=== PATIENT | female | born 1960 | race African-American/Black ===

== ENCOUNTER 2017-05-05 20:29 | Inpatient (IN) | payer SELFPAY ==
[~2017-05-05] VITALS: Ht 167.6 cm; Wt 75.4 kg
--- NOTE | 2017-05-05 20:56 | RAD ---
CT Head W/O Contrast: History: lt sided facial droop, weakness, no priors Comparison: none Axial images were obtained without contrast. The cabrales and white matter appears normal and symmetrical for the patients age. There is no mass effect, extraaxial fluid collections or hydrocephalus. There is no gross bleed. There is no focal loss of cabrales-white matter distinction to suggest acute ischemia, i.e. stroke. Impression: No acute findings. These results were called to Dr. MOREIRA and verified by read back at the time of dictation. Dr. ARTIS Compliance Statement: One or more of the following individualized dose reduction techniques were utilized for this examination: 1. Automated exposure control 2. Adjustment of the mA and/or kV according to patient size 3. Use of iterative reconstruction technique Electronically signed by: Rancho Lainez III, MD (05/05/2017 8:52 PM) [facility]
[2017-05-05] MEDS ORDERED: ALTEPLASE 6.9 MG IV ONE (21:00)
[2017-05-05] MEDS ORDERED: LABETALOL 20 MG/4 ML DISP.SYRIN. IV PRN ×2 (21:00→22:30)
[2017-05-05] MEDS ORDERED: ALTEPLASE IV SCH (21:00)
[2017-05-05 21:06] LABS: HEMATOCRIT 40.8 % (36.0-47.0); HEMOGLOBIN 13.6 g/dL (12.0-15.5); RED BLOOD COUNT 4.55 x10^6/uL (3.50-5.40); RED CELL DISTRIBUTION WIDTH 13.5 % (11.5-14.5); WHITE BLOOD COUNT 6.8 x10^3/uL (4.0-11.0)
--- NOTE | 2017-05-05 21:07 | PHYS DOC ---
Past Medical History Past Medical History: No Pertinent History Past Surgical History: , Other Additional Past Surgical Histo: breast reduction Alcohol Use: None Drug Use: None Adult General Chief Complaint Chief Complaint: WEAKNESS/GENERALIZED HPI HPI Patient is a 57 year old female who presents with complaint of left-sided weakness. Patient states that her symptoms started approximately 15 minutes prior to arrival. The patient states that she has been feeling nausea throughout the day but did not experience any weakness until approximately 15 minutes prior to arrival. Patient denies any significant past medical history a right. Patient states that she has had a breast reduction and but denies any other significant past medical history. Patient states that she is having difficulty lifting her left upper and lower extremity. Patient also states that she has noticed some difficulty with speech as she has been slurring her words. Patient denies any history of similar symptoms. Review of Systems Review of Systems Constitutional: Denies fever or chills [] Eyes: Denies change in visual acuity, redness, or eye pain [] HENT: Denies nasal congestion or sore throat [] Respiratory: Denies cough or shortness of breath [] Cardiovascular: No additional information not addressed in HPI [] GI: Denies abdominal pain, nausea, vomiting, bloody stools or diarrhea [] : Denies dysuria or hematuria [] Musculoskeletal: Denies back pain or joint pain [] Integument: Denies rash or skin lesions [] Neurologic: Denies headache, focal weakness or sensory changes [] Endocrine: Denies polyuria or polydipsia [] All other systems were reviewed and found to be within normal limits, except as documented in this note. Current Medications Current Medications Current Medications Medications (Trade) Dose Ordered Sig/Radha Start Time Stop Time Status Last Admin Dose Admin Alteplase, Recombinant 62.8 ml @ 62.8 mls/hr Q1H 05/05/17 21:00 05/05/17 21:59 DC Labetalol HCl (Normodyne) 10 mg PRN Q10MIN PRN 05/05/17 21:00 Nicardipine HCl 50 mg/Sodium Chloride 270 ml @ 27 mls/hr CONT PRN PRN 05/05/17 21:00 Allergies Allergies Allergies Coded Allergies Type Severity Reaction Last Updated Verified No Known Drug Allergies 05/05/17 No Physical Exam Physical Exam Constitutional: Alert, afebrile, no acute distress. [] HENT: Normocephalic, atraumatic, bilateral external ears normal, oropharynx moist, no oral exudates, nose normal. [] Eyes: PERRLA, EOMI, conjunctiva normal, no discharge. [] Neck: Normal range of motion, no tenderness, supple, no stridor. [] Cardiovascular:Heart rate regular rhythm, no murmur [] Lungs & Thorax: Bilateral breath sounds clear to auscultation [] Abdomen: Bowel sounds normal, soft, no tenderness, no masses, no pulsatile masses. [] Skin: Warm, dry, no erythema, no rash. [] Back: No tenderness, no CVA tenderness. [] Extremities: No tenderness, no cyanosis, no clubbing, ROM intact, no edema. [] Neurologic: Alert and oriented X 3, positive drift in the left upper and lower extremity, 3 out of 5 door serviceman strength in left upper extremity, 5 out of 5 door serviceman strength in right upper extremity, left-sided facial droop that is forehead sparing. [] Current Patient Data Vital Signs Vital Signs Date Time Temp Pulse Resp B/P (MAP) Pulse Ox O2 Delivery O2 Flow Rate FiO2 05/05/17 20:33 98.1 85 16 178/96 (123) 98 Room Air 98.1 Lab Values Laboratory Tests Test 05/05/17 20:40 05/05/17 20:50 Glucose (Fingerstick) 100 mg/dL (70-99) H White Blood Count 6.8 x10^3/uL (4.0-11.0) Red Blood Count 4.55 x10^6/uL (3.50-5.40) Hemoglobin 13.6 g/dL (12.0-15.5) Hematocrit 40.8 % (36.0-47.0) Mean Corpuscular Volume 90 fL (79-100) Mean Corpuscular Hemoglobin 30 pg (25-35) Mean Corpuscular Hemoglobin Concent 33 g/dL (31-37) Red Cell Distribution Width 13.5 % (11.5-14.5) Platelet Count 219 x10^3/uL (140-400) Prothrombin Time 11.9 SEC (11.7-14.0) Prothrombin Time INR 0.9 (0.8-1.1) PTT 31 SEC (24-38) Sodium Level 138 mmol/L (136-145) Potassium Level 3.8 mmol/L (3.5-5.1) Chloride Level 104 mmol/L (98-107) Carbon Dioxide Level 25 mmol/L (21-32) Anion Gap 9 (6-14) Blood Urea Nitrogen 26 mg/dL (7-20) H Creatinine 0.7 mg/dL (0.6-1.0) Estimated GFR (Cockcroft-Gault) 85.9 Glucose Level 100 mg/dL (70-99) H Calcium Level 9.3 mg/dL (8.5-10.1) Laboratory Tests 05/05/17 20:50 Laboratory Tests 05/05/17 20:50 EKG EKG Interpreted by me: Heart rate 81, sinus rhythm, normal intervals, normal axis, no acute ST/T-wave abnormalities present[] Radiology/Procedures Radiology/Procedures One view AP chest x-ray interpreted by me: No infiltrates, no effusions, normal cardiac silhouette [facility] [address] [place] [address] IMAGING REPORT Signed PATIENT: LYN BANG ACCOUNT: [id number] : 1960 LOCATION: ER AGE: 57 SEX: F EXAM STATUS: PRE ER ORD. PHYSICIAN: ASTER MOREIRA MD REASON: left-sided facial droop and extremity weakness 15 minutes ago PROCEDURE: CT CODE STROKE HEAD WO CT Head W/O Contrast: History: lt sided facial droop, weakness, no priors Comparison: none Axial images were obtained without contrast. The cabrales and white matter appears normal and symmetrical for the patients age. There is no mass effect, extraaxial fluid collections or hydrocephalus. There is no gross bleed. There is no focal loss of cabrales-white matter distinction to suggest acute ischemia, i.e. stroke. Impression: No acute findings. These results were called to Dr. MOREIRA and verified by read back at the time of dictation. Dr. ARTIS Compliance Statement: One or more of the following individualized dose reduction techniques were utilized for this examination: 1. Automated exposure control 2. Adjustment of the mA and/or kV according to patient size 3. Use of iterative reconstruction technique Electronically signed by: Kyra Roman III, MD (05/05/2017 8:52 PM) [facility] DICTATED and SIGNED BY: KYRA ROMAN III, MD DATE: 05/05/172049 CC: ASTER MOREIRA MD ~ [facility] [address] [place] [address] IMAGING REPORT Signed PATIENT: LYN BANG ACCOUNT: [id number] : 1960 LOCATION: [address] [place] [address] AGE: 57 SEX: F EXAM STATUS: ADM IN ORD. PHYSICIAN: ASTER MOREIRA MD REASON: left-sided weakness PROCEDURE: CT ANGIOGRAPHY HEAD AND NECK CTA head and CTA neck with contrast History: Left-sided facial droop and weakness Technique: Axial images were obtained of the head and neck after the intravenous administration of 75 mL of Isovue-370 IV contrast. Multiplanar reconstruction was performed on an independent work station including MIP imaging and 3D angiographic imaging. Comparison: none CTA head with contrast. Findings: Brain: The cabrales and white matter appears symmetrical. There is no mass effect, extra-axial fluid collections or hydrocephalus. There is no gross bleed. Distal carotid arteries: normal caliber Vertebral basilar system normal Major cerebral arteries: normal Impression: no acute findings end impression CTA neck with contrast: Findings: Aortic arch and origin of great vessels: normal Common carotid arteries: Right: normal Left: normal Internal carotid arteries: Right: normal Left: normal Vertebral basilar system normal Impression: No significant stenosis. PQRS Compliance Statement - Stenosis calculations for CT, MR and conventional angiography are based upon measurement of the distal ICA diameter in accordance with the NASCET methodology. Stenosis calculations for carotid ultrasound studies are derived from validated velocity criteria which are known to correlate with the NASCET methodology. PQRS Compliance Statement: One or more of the following individualized dose reduction techniques were utilized for this examination: 1. Automated exposure control 2. Adjustment of the mA and/or kV according to patient size 3. Use of iterative reconstruction technique Electronically signed by: Kyra Roman III, MD (05/05/2017 9:59 PM) [facility] DICTATED and SIGNED BY: KYRA ROMAN III, MD DATE: 05/05/172152 CC: ASTER MOREIRA MD; MARZENA OSBORN MD; UNKNOWN PCP NAME ~ [] Course & Med Decision Making Course & Med Decision Making Pertinent Labs and Imaging studies reviewed. (See chart for details) Patient was activated as a code stroke at 2036. The patient's CT scan was read negative at 2051 by the radiologist. The patient has an NIH score of 5. After speaking with the patient regarding risks and benefits of use of TPA, the patient was in agreement with treatment. TPA infusion was started at 2103. I spoke with Dr. Higgins at 2114 and informed him of the initiation of TPA which he was in agreement. Patient's CT angiogram showed no evidence of large vessel occlusion. The patient will be admitted for further treatment in hospital. I spoke with Dr. Osborn who accepted care patient in hospital. Dragon Disclaimer Dragon Disclaimer This electronic medical record was generated, in whole or in part, using a voice recognition dictation system. Departure Departure Impression: Primary Impression: Acute CVA (cerebrovascular accident) Disposition: ADMITTED INPATIENT Admitting Physician: Marzena Osborn Condition: CRITICAL ASTER MOREIRA MD May 05, 2017 21:07
[2017-05-05 21:20] LABS: CALCIUM 9.3 mg/dL (8.5-10.1); CREATININE 0.7 mg/dL (0.6-1.0); GFR 85.9; POTASSIUM 3.8 mmol/L (3.5-5.1)
[2017-05-05] MEDS ORDERED: ASPI-630 PO (21:20)
[2017-05-05 21:24] LABS: INR 0.9 (0.8-1.1); PROTHROMBIN TIME PATIENT 11.9 SEC (11.7-14.0)
[2017-05-05] MEDS ORDERED: IOHEXOL 300 MG/ML 100ML VIAL. IV ONE (21:45)
[2017-05-05] MEDS ORDERED: CONTRAST GIVEN MC PRN (21:45)
[2017-05-05] MEDS ORDERED: IV NORMAL SALINE 50ML 50 ML IV ONE (22:00)
--- NOTE | 2017-05-05 22:02 | RAD ---
CTA head and CTA neck with contrast History: Left-sided facial droop and weakness Technique: Axial images were obtained of the head and neck after the intravenous administration of 75 mL of Isovue-370 IV contrast. Multiplanar reconstruction was performed on an independent work station including MIP imaging and 3D angiographic imaging. Comparison: none CTA head with contrast. Findings: Brain: The cabrales and white matter appears symmetrical. There is no mass effect, extra-axial fluid collections or hydrocephalus. There is no gross bleed. Distal carotid arteries: normal caliber Vertebral basilar system normal Major cerebral arteries: normal Impression: no acute findings end impression CTA neck with contrast: Findings: Aortic arch and origin of great vessels: normal Common carotid arteries: Right: normal Left: normal Internal carotid arteries: Right: normal Left: normal Vertebral basilar system normal Impression: No significant stenosis. PQRS Compliance Statement - Stenosis calculations for CT, MR and conventional angiography are based upon measurement of the distal ICA diameter in accordance with the NASCET methodology. Stenosis calculations for carotid ultrasound studies are derived from validated velocity criteria which are known to correlate with the NASCET methodology. PQRS Compliance Statement: One or more of the following individualized dose reduction techniques were utilized for this examination: 1. Automated exposure control 2. Adjustment of the mA and/or kV according to patient size 3. Use of iterative reconstruction technique Electronically signed by: Rancho Lainez III, MD (05/05/2017 9:59 PM) [facility]
[2017-05-05] MEDS ORDERED: ONDANSETRON PF 4 MG/2 ML VIAL. IV PRN (22:30)
[2017-05-05] MEDS ORDERED: ACETAMINOPHEN 325 MG SUPP.RECT. PR PRN (22:30)
[2017-05-05 23:15] VITALS: BP 153/85
[2017-05-05 23:30] VITALS: BP 142/85
[2017-05-05 23:45] VITALS: BP 156/91
[2017-05-06] VITALS (29 sets, daily range): BP systolic 105–144; BP diastolic 54–93
[2017-05-06] MEDS: IV NORMAL SALINE 1000ML BAG 1,000 ML IV SCH ×2 (00:50→09:58)
[2017-05-06] MEDS: ATORVASTATIN CALCIUM 20 MG TABLET PO SCH ×2 (00:59→21:16)
[2017-05-06 05:49] LABS: CHOLESTEROL/HDL RATIO 2.2
--- NOTE | 2017-05-06 06:15 | EKG ---
[facility] [address] [place] [address] Test Date: 2017-05-05 Test Time: 20:38:08 Pat Name: LYN BANG Department: Room: 104 1 Gender: F Digital Archivist: : 1960 Requested By: ASETR MOREIRA Order Number: [id number] Reading MD: Schuyler Pino Measurements Intervals [place] Rate: 81 P: 58 AK: 146 QRS: 34 QRSD: 86 T: 38 QT: 382 QTc: 444 Interpretive Statements SINUS RHYTHM Electronically Signed On 05-11-2017 14:42:53 GENETIC COORDINATOR by Schuyler Pino
--- NOTE | 2017-05-06 08:14 | RAD ---
Portable chest, 05/05/2017: History: Code stroke The heart size and pulmonary vascularity are normal. There is mild tortuosity of the thoracic aorta. No pulmonary infiltrates are seen. There is no evidence of pleural fluid. IMPRESSION: No acute cardiopulmonary abnormality is detected.
--- NOTE | 2017-05-06 10:40 | HP ---
ADMIT DATE: 05/06/2017 CHIEF COMPLAINT: Left-sided weakness. HISTORY OF PRESENT ILLNESS: The patient is a 57-year-old woman without any past medical history who presented to the Emergency Room with 15 minutes of left-sided weakness and facial droop. She relates she was at work, being in housekeeping at the medical building, when she suddenly started having the above symptoms. She called a coworker who helped her come to the Emergency Room. She endorses left-sided weakness with difficulty walking as well as some speech difficulties and slurring speech. She never had similar problems. Denies any other symptoms. In the Emergency Room, CT of the head was negative for any bleed and the patient was started on tPA in consultation with Neurology. PAST MEDICAL HISTORY: None. PAST SURGICAL HISTORY: Status post several breast biopsies, all benign; status post breast reduction, status post . FAMILY HISTORY: Two sisters positive for breast cancer and one sister with end-stage renal disease, hypertension prevalent as well. No strokes, no MIs. SOCIAL HISTORY: Does not smoke. No toxic habits. ALLERGIES: No known drug allergies. MEDICATIONS: MAR reconciled with home medications. REVIEW OF SYSTEMS: Positive as per HPI. Organ systems were reviewed otherwise and found negative. PHYSICAL EXAMINATION: VITAL SIGNS: From today show a blood pressure of 131/84, heart rate of 56, respiratory rate at 16. She is afebrile. GENERAL: This is a 57-year-old woman, well nourished, well developed, alert and oriented, in no acute distress. HEENT: Shows no scleral icterus. NECK: Supple. LUNGS: Clear to auscultation bilaterally. HEART: Regular rate and rhythm. ABDOMEN: Has positive bowel sounds, soft, nontender. EXTREMITIES: Show no edema. NEUROLOGIC: Reveals 5/5 muscle strength in upper and lower extremities both proximally as well as distally. No facial droop is noted. SKIN: Warm, soft and dry. LABORATORY DATA: CBC with a WBC of 6.8, hemoglobin 13.6, platelets of 219. Chemistries with a BUN and creatinine of 26 and 0.7. Electrolytes within normal limits. Glucose at 100. Lipid profile with cholesterol of 228, LDL at 113, HDL at 106. IMAGING: CTA of the head and neck shows normal caliber vessels, no acute findings. ASSESSMENT AND PLAN: The patient is a 57-year-old woman with mild hypertension who presented with symptoms of cerebrovascular accident. She has been given tPA with resolution of all her symptoms. She will be started on JOCELYNE inhibitor for blood pressure control. Goal of less than 130/80 was discussed with her. In addition, she requires a statin as well as aspirin. These will be instituted. We will continue to monitor. Neurology has been consulted, plan for MRI. Should this be negative, the patient can be discharged 24 hours after start of her tPA, which actually was 9:00 at night. BERTA TARIQ MD DR: UR/nts JOB#: [id number] / [id number] JAQUELIN
[2017-05-06] MEDS: LISINOPRIL 10 MG TABLET PO SCH (10:41)
--- NOTE | 2017-05-06 11:12 | PDOC2 ---
NEUROLOGY CONSULT Date of Admission Date of Admission DATE: 05/06/17 TIME: 11:05 Reason for Consult Reason for Consult: Stroke symptoms Referring Physician Referring Physician: Dr. Meza PCP: [facility] Source Source: Chart review, Patient History of Present Illness History of Present Illness The patient is a 57-year-old right-handed female without past history, who was at work last night here at [place]. She developed left sided numbness and weakness in [facility] emergency department within 15 minutes of symptom onset. She had a negative head CT and was given out the place and her symptoms have resolved. She has no prior history of stroke, seizure, head injury, or neurological symptoms. She gets a yearly physical but does not need any medications. Past Surgical History Past Surgical History: No pertinent history Family History Family History: CVA Social History Social History , works here at [place], quit smoking 30 years ago, where alcohol Current Medications Current Medications Current Medications Alteplase, Recombinant 6.9 ml @ 414 mls/hr 1X ONCE IV Last administered on 21:04; Start 05/05/17 at 21:00; Stop 05/05/17 at 21:01; Status DC Alteplase, Recombinant 62.8 ml @ 62.8 mls/hr Q1H IV Last administered on 05/05 21:06; Start 05/05/17 at 21:00; Stop 05/05/17 at 21:59; Status DC Sodium Chloride 50 ml @ 0 mls/hr 1X ONCE IV Last administered on 05/05/17 22 :10; Start 05/05/17 at 22:00; Stop 05/05/17 at 22:01; Status DC Labetalol HCl (Normodyne) 10 mg PRN Q10MIN PRN IV HYPERTENSION, SEE COMMENTS; Start 05/05/17 at 21:00; Stop 05/05/17 at 22:31; Status DC Nicardipine HCl 50 mg/Sodium Chloride 270 ml @ 27 mls/hr CONT PRN PRN IV HYPERTENSION, SEE COMMENTS; Start 05/05/17 at 21:00; Stop 05/06/17 at 00:00; Status DC Iohexol (Omnipaque 300 Mg/ml) 75 ml 1X ONCE IV Last administered on 21:39; Start 05/05/17 at 21:45; Stop 05/05/17 at 21:46; Status DC Info (Do NOT chart on this entry -- for MONITORING) 1 each PRN DAILY PRN MC SEE COMMENTS; Start 05/05/17 at 21:45; Stop 05/07/17 at 21:44 Sodium Chloride 1,000 ml @ 100 mls/hr Q10H IV Last administered on 05/06/17 09:58; Start 05/05/17 at 22:20; Stop 05/06/17 at 10:20; Status DC Atorvastatin Calcium (Lipitor) 20 mg QHS PO Last administered on 05/06/17 00: 59; Start 05/06/17 at 01:00 Labetalol HCl (Normodyne) 10 mg PRN Q10MIN PRN IV HYPERTENSION, SEE COMMENTS; Start 05/05/17 at 22:30 Nicardipine HCl 50 mg/Sodium Chloride 270 ml @ 27 mls/hr CONT PRN PRN IV HYPERTENSION, SEE COMMENTS; Start 05/05/17 at 22:30; Stop 05/06/17 at 10:20; Status DC Acetaminophen (Tylenol) 650 mg PRN Q6HRS PRN PO MILD PAIN / TEMP; Start at 22:30 Acetaminophen (Tylenol) 325 mg PRN Q6HRS PRN TX MILD PAIN / TEMP; Start at 22:30 Ondansetron HCl (Zofran) 4 mg PRN Q6HRS PRN IV NAUSEA/VOMITING; Start at 22:30 Lisinopril (Prinivil) 10 mg DAILY PO Last administered on 05/06/17 10:41; Start 05/06/17 at 10:30 Active Scripts Active Reported Aspirin 81 Mg Tab.chew 324 Mg PO Allergies Allergies: Coded Allergies: No Known Drug Allergies (Unverified , 05/05/17) ROS Review of System Negative for fevers, chills, weight loss, shortness of breath, chest pain, indigestion, hematochezia, melena, dysuria. Full 14-point review systems is negative. Physical Exam Physical Examination PHYSICAL EXAMINATION: Vital signs: see above. General appearance is normal and in no acute distress. HEENT: Normocephalic and nontraumatic. Eyes, nose, ears, and throat are unremarkable. Neck is supple. No lymphadenopathy. No bruits are heard over the carotid artery. No crepitus. NEUROLOGICAL EXAMINATION: Mental Status Examination: Alert. Oriented to time, place, and person. Answers questions and follows commends. Pupils are equal round and reactive to light and accommodation. Extraocular movements are intact. Visual field exam shows no defect on the direct confrontation. No motor or sensory deficits on the facial exam. Uvula in the midline and the soft palate elevated symmetrically. No deviation of the tongue to any direction. Gross hearing is normal. Shoulder shrug normal. Muscle tone is normal. Muscle strength is 5. Deep tendon reflexes are 2+ all around. Plantar reflex is with flexion response bilaterally. Nlofmj-jt-byof test performance is accurate. Tandem walk test is accurate. Alternative movements are accurate. Romberg test is negative. Gait is normal. Sensory exam shows no deficits. No cerebellar signs are elicited. Vitals VITALS Vital Signs Date Time Temp Pulse Resp B/P (MAP) Pulse Ox O2 Delivery O2 Flow Rate FiO2 05/06/17 10:41 76 114/81 05/06/17 10:00 97.6 18 100 Room Air 97.6 Labs Labs Laboratory Tests Test 05/05/17 20:40 05/05/17 20:50 05/06/17 04:55 Glucose (Fingerstick) 100 mg/dL (70-99) White Blood Count 6.8 x10^3/uL (4.0-11.0) Red Blood Count 4.55 x10^6/uL (3.50-5.40) Hemoglobin 13.6 g/dL (12.0-15.5) Hematocrit 40.8 % (36.0-47.0) Mean Corpuscular Volume 90 fL (79-100) Mean Corpuscular Hemoglobin 30 pg (25-35) Mean Corpuscular Hemoglobin Concent 33 g/dL (31-37) Red Cell Distribution Width 13.5 % (11.5-14.5) Platelet Count 219 x10^3/uL (140-400) Prothrombin Time 11.9 SEC (11.7-14.0) Prothromb Time International Ratio 0.9 (0.8-1.1) Activated Partial Thromboplast Time 31 SEC (24-38) Sodium Level 138 mmol/L (136-145) Potassium Level 3.8 mmol/L (3.5-5.1) Chloride Level 104 mmol/L (98-107) Carbon Dioxide Level 25 mmol/L (21-32) Anion Gap 9 (6-14) Blood Urea Nitrogen 26 mg/dL (7-20) Creatinine 0.7 mg/dL (0.6-1.0) Estimated GFR (Cockcroft-Gault) 85.9 Glucose Level 100 mg/dL (70-99) Calcium Level 9.3 mg/dL (8.5-10.1) Triglycerides Level 45 mg/dL (0-150) Cholesterol Level 228 mg/dL (0-200) LDL Cholesterol, Calculated 113 mg/dL (0-100) VLDL Cholesterol, Calculated 9 mg/dL (0-40) Non-HDL Cholesterol Calculated 122 mg/dL (0-129) HDL Cholesterol 106 mg/dL (40-60) Cholesterol/HDL Ratio 2.2 Laboratory Tests Test 05/05/17 20:40 05/05/17 20:50 05/06/17 04:55 Glucose (Fingerstick) 100 mg/dL (70-99) White Blood Count 6.8 x10^3/uL (4.0-11.0) Red Blood Count 4.55 x10^6/uL (3.50-5.40) Hemoglobin 13.6 g/dL (12.0-15.5) Hematocrit 40.8 % (36.0-47.0) Mean Corpuscular Volume 90 fL (79-100) Mean Corpuscular Hemoglobin 30 pg (25-35) Mean Corpuscular Hemoglobin Concent 33 g/dL (31-37) Red Cell Distribution Width 13.5 % (11.5-14.5) Platelet Count 219 x10^3/uL (140-400) Prothrombin Time 11.9 SEC (11.7-14.0) Prothromb Time International Ratio 0.9 (0.8-1.1) Activated Partial Thromboplast Time 31 SEC (24-38) Sodium Level 138 mmol/L (136-145) Potassium Level 3.8 mmol/L (3.5-5.1) Chloride Level 104 mmol/L (98-107) Carbon Dioxide Level 25 mmol/L (21-32) Anion Gap 9 (6-14) Blood Urea Nitrogen 26 mg/dL (7-20) Creatinine 0.7 mg/dL (0.6-1.0) Estimated GFR (Cockcroft-Gault) 85.9 Glucose Level 100 mg/dL (70-99) Calcium Level 9.3 mg/dL (8.5-10.1) Triglycerides Level 45 mg/dL (0-150) Cholesterol Level 228 mg/dL (0-200) LDL Cholesterol, Calculated 113 mg/dL (0-100) VLDL Cholesterol, Calculated 9 mg/dL (0-40) Non-HDL Cholesterol Calculated 122 mg/dL (0-129) HDL Cholesterol 106 mg/dL (40-60) Cholesterol/HDL Ratio 2.[address] Head W/O Contrast: History: lt sided facial droop, weakness, no priors Comparison: none Axial images were obtained without contrast. The cabrales and white matter appears normal and symmetrical for the patients age. There is no mass effect, extraaxial fluid collections or hydrocephalus. There is no gross bleed. There is no focal loss of cabrales-white matter distinction to suggest acute ischemia, i.e. stroke. Impression: No acute findings. CT Head W/O Contrast: History: lt sided facial droop, weakness, no priors Comparison: none Axial images were obtained without contrast. The cabrales and white matter appears normal and symmetrical for the patients age. There is no mass effect, extraaxial fluid collections or hydrocephalus. There is no gross bleed. There is no focal loss of cabrales-white matter distinction to suggest acute ischemia, i.e. stroke. Impression: No acute findings. Assessment/Plan Assessment/Plan Impression: Right hemisphere stroke symptoms, resolved following alteplase. No evidence of intracranial hemorrhage clinically. Note hyperlipidemia Note borderline hypertension. Recommendations: ICU monitoring for 24 hours following alteplase. I scheduled a brain MRI for 5 PM today which will be close to 24 hours after the alteplase. She has already had CT Instagram Echocardiogram Start aspirin tomorrow Statin Close monitoring of blood pressure as an outpatient. Follow up with her primary physician Follow-up with neurology as needed If she is doing well late tonight, we could perhaps discharger then. Thank you for letting me help the patients care QUE MASON MD May 06, 2017 11:12
[2017-05-06] MEDS: ACETAMINOPHEN 325 MG TABLET. PO PRN (17:33)
--- NOTE | 2017-05-06 18:00 | RAD ---
EXAM: MRI BRAIN WITHOUT CONTRAST. HISTORY: Left-sided weakness and facial droop, status post TPA. TECHNIQUE: Magnetic resonance images of the brain were obtained without intravenous contrast. COMPARISON: None. FINDINGS: There is no diffusion restriction. Foci of white matter T2/FLAIR hyperintensity are nonspecific but are consistent with moderate chronic microangiopathic change. The ventricles are normal in size and position. The paranasal sinuses are clear. The orbits are unremarkable. The temporal bones are unremarkable. The calvarium demonstrates no suspicious lesions. IMPRESSION: 1. No acute infarct. 2. Moderate chronic microangiopathic white matter change. Electronically signed by: Kelly Mendiola MD (05/06/2017 5:57 PM) [facility]
[2017-05-07] MEDS: ACETAMINOPHEN 325 MG TABLET. PO PRN (00:33)
[2017-05-07 04:00] VITALS: BP 110/80
[2017-05-07 08:00] VITALS: BP 107/71
[2017-05-07 08:31] VITALS: BP 107/71
[2017-05-07] MEDS: LISINOPRIL 10 MG TABLET PO SCH (08:31)
--- NOTE | 2017-05-07 08:55 | CARD ---
APPROVED REPORT EXAM: Two-dimensional and M-mode echocardiogram with Doppler and color Doppler. Other Information Quality : Good INDICATION CVA/TIA Echo Enhancing Agent Indication: Rule Out Septal Defect Agent/Amount Used: Agitated Saline mL 2D DIMENSIONS Left Atrium(2D)3.6 (1.6-4.0cm)IVSd1.0 (0.7-1.1cm) Aortic Root(2D)2.9 (2.0-3.7cm)LVDd4.6 (3.9-5.9cm) LVOT Diameter2.0 (1.8-2.4cm)PWd1.2 (0.7-1.1cm) LVDs2.9 (2.5-4.0cm)FS (%) 36.8 % SV65.5 mlLVEF(%)66.7 (>50%) Aortic Valve AoV Peak Yuriy.156.3cm/sAoV VTI33.9cm AO Peak GR.9.8mmHgLVOT VTI 28.18cm AO Mean GR.5mmHgAVA (VTI)2.60cm2 Mitral Valve MV E Epgnuvcx69.7cm/sMV DECEL XXPD053aq MV A Bczbfbog19.6cm/sE/A Ratio1.4 TDI Lateral E' P. V9.72cm/sMedial E' P. V10.30cm/s E/Lateral E'9.5E/Medial E'9.0 Tricuspid Valve TR P. Txxwwziy290qb/sRAP OKAVUNFJ2rcAd TR Peak Gr.88wnVaTGGK68wgCl LEFT VENTRICLE The left ventricle is normal size. There is normal left ventricular wall thickness. Left ventricle sy stolic function is normal. The Ejection Fraction is 55-60%. There is normal LV segmental wall motion. Tissue Doppler imaging reveals mild left ventricular diastolic dysfunction. RIGHT VENTRICLE The right ventricle is normal size. The right ventricular systolic function is normal. ATRIA The left atrium size is normal. The right atrium size is normal. The interatrial septum is intact wit h no evidence for an atrial septal defect or patent foramen ovale as noted on 2-D doppler imaging or saline contrast. AORTIC VALVE The aortic valve is normal in structure and function. Doppler and Color Flow revealed no significant aortic regurgitation. There is no significant aortic valvular stenosis. MITRAL VALVE The mitral valve is mildly thickened. There is no evidence of mitral valve prolapse. There is no mitr al valve stenosis. Doppler and Color-flow revealed trace mitral regurgitation. TRICUSPID VALVE The tricuspid valve is normal in structure. Doppler and Color Flow revealed trace tricuspid regurgita tion. There is no tricuspid valve prolapse or vegetation. There is no tricuspid valve stenosis. PULMONIC VALVE Doppler and Color Flow revealed no pulmonic valvular regurgitation. There is no pulmonic valvular reza nosis. GREAT VESSELS The aortic root is normal in size. The ascending aorta is normal in size. The IVC is normal in size a nd collapses >50% with inspiration. PERICARDIAL EFFUSION There is no pleural effusion. There is no evidence of significant pericardial effusion. Critical Notification Critical Value: No <Conclusion> Left ventricle systolic function is normal. The Ejection Fraction is 55-60%. There is normal LV segmental wall motion. The interatrial septum is intact with no evidence for an atrial septal defect or patent foramen ovale as noted on 2-D doppler imaging or saline contrast.
[2017-05-07] MEDS ORDERED: LISI10TA2 PO (10:19)
[2017-05-07] MEDS ORDERED: ATOR20TA58 PO (10:19)
[2017-05-07] MEDS ORDERED: ASPIRIN CHEWABLE 81 MG TABLET. PO SCH (12:00)
--- NOTE | 2017-05-07 19:33 | DS ---
DATE OF DISCHARGE: 05/07/2017 CHIEF COMPLAINT: Left-sided weakness. HOSPITAL COURSE: The patient is a fairly healthy 57-year-old -[place] woman, who presented to the Emergency Room with sudden onset left-sided weakness and facial droop as well as aphasia. She was seen in the Emergency Room within 15 minutes of onset of symptoms and was deemed appropriate for TPA, which was administered without any difficulties. Her symptoms completely resolved. Neurology was consulted and she was started on blood pressure medications, aspirin as well as statin. She does have a family history of CVA and heart disease. With complete stability of her symptoms within 24 hours of TPA administration and negative MRI, the patient was deemed stable for discharge. PHYSICAL EXAMINATION: VITAL SIGNS: Blood pressure of 107/71, heart rate of 74, respiratory rate at 12. She is afebrile. GENERAL: Alert and oriented, no acute distress. LUNGS: Clear. HEART: Regular rate and rhythm. ABDOMEN: Positive bowel sounds, soft, nontender. EXTREMITIES: No edema. NEUROLOGIC: Without any deficits. DISCHARGE DIAGNOSIS: Transient ischemic attack, status post TPA. DISCHARGE DISPOSITION: To home. DISCHARGE CONDITION: Improved. DISCHARGE MEDICATIONS: Please refer to MAR. DISCHARGE INSTRUCTIONS: The patient will follow up with PCP in 2 weeks. BERTA TARIQ MD DR: JOSHUA/nts JOB#: [id number] / [id number] JAQUELIN
== END 2017-05-07 12:10 | disposition home or self-care (01) | DRG 62 ==
LOC: ER 20:29 → 1 WEST ICU 21:07
PROVIDERS: ADMIT Internal Medicine; ATTEND Internal Medicine
DX: G45.9 Transient cerebral ischemic attack, unspecified (principal); R47.01 Aphasia; E78.5 Hyperlipidemia, unspecified; I10 Essential (primary) hypertension; Z80.3 Family history of malignant neoplasm of breast; Z82.3 Family history of stroke; Z87.891 Personal history of nicotine dependence; Z82.49 Family history of ischemic heart disease and other diseases of the circulatory system
CPT/HCPCS: 36415; 37195; 70450; 70496; 70498; 70551; 71010; 80048; 80061; 82962; 85027; 85610; 85730; 87040; 87641; 93005; 93306; 96361; J2997; J7030; Q9967; 92610; 99285-25

== ENCOUNTER 2018-01-24 17:58 | Emergency (ER) | payer BC ==
[~2018-01-24] VITALS: Ht 167.6 cm; Wt 71.7 kg
[~2018-01-24 17:58] MED LIST: ASPI-630 PO; ATOR20TA58 PO; LISI10TA2 PO
[2018-01-24] MEDS ORDERED: IV NORMAL SALINE 1000ML BAG 1,000 ML IV ONE (18:30)
[2018-01-24] MEDS ORDERED: ONDANSETRON PF 4 MG/2 ML VIAL. IV ONE (18:30)
[2018-01-24] MEDS ORDERED: FAMOTIDINE 20 MG/2 ML VIAL IVP ONE (18:30)
[2018-01-24] MEDS ORDERED: HYOSCYAMINE 0.125 MG TAB.RAPDIS PO ONE (18:30)
[2018-01-24 18:32] LABS: BILIRUBIN,URINE NEGATIVE (NEG); CLARITY,URINE CLEAR; COLOR,URINE YELLOW; NITRITE,URINE NEGATIVE (NEG); PROTEIN,URINE NEGATIVE (NEG-TRACE); UROBILINOGEN,URINE 0.2 mg/dL (0.2 mg/dL)
[2018-01-24 18:39] LABS: BASO % 1 % (0-3); EOS # 0.2 x10^3/uL (0.0-0.7); EOS % 3 % (0-3); HEMATOCRIT 39.9 % (36.0-47.0); HEMOGLOBIN 13.8 g/dL (12.0-15.5); LYMPH % 36 % (24-48); MEAN CORPUSCULAR HEMOGLOBIN 31 pg (25-35); MEAN CORPUSCULAR HGB CONC 35 g/dL (31-37); MEAN CORPUSCULAR VOLUME 90 fL (79-100); MONO # 0.9 x10^3/uL (0.0-1.1); MONO % 17 % (0-9); NEUT # 2.4 x10^3uL (1.8-7.7); NEUT % 44 % (31-73); PLATELET COUNT 220 x10^3/uL (140-400); RED BLOOD COUNT 4.44 x10^6/uL (3.50-5.40); RED CELL DISTRIBUTION WIDTH 13.8 % (11.5-14.5); WHITE BLOOD COUNT 5.4 x10^3/uL (4.0-11.0)
[2018-01-24 18:45] LABS: BACTERIA,URINE 0 /HPF (0-FEW); RBC,URINE 0 /HPF (0-2); WBC,URINE 0 /HPF (0-4)
[2018-01-24 18:46] LABS: SQUAMOUS EPITHELIAL CELL,UR FEW /LPF
--- NOTE | 2018-01-24 18:46 | PHYS DOC ---
Past Medical History Past Medical History: CVA Past Surgical History: , Other Additional Past Surgical Histo: breast reduction Alcohol Use: None Drug Use: None Adult General Chief Complaint Chief Complaint: NAUSEA/VOMITING/DIARRHA HPI HPI Patient is a 57 year old female who presents to the emergency department complaining of abdominal pain. Patient states that she has had intermittent abdominal pain, diarrhea and vomiting. States her symptoms began on Thursday morning. Her diarrhea and vomiting subsided Thursday morning while her abdominal pain has continued. She also states that she has had some left upper back pain. She denies any close contacts with similar symptoms and denies eating any suspicious foods. Her abdominal pain is described as being sharp and coming in waves. Review of Systems Review of Systems Constitutional: Denies fever or chills [] Eyes: Denies change in visual acuity, redness, or eye pain [] HENT: Denies nasal congestion or sore throat [] Respiratory: Denies cough or shortness of breath [] Cardiovascular: Denies chest pain and palpitations[] GI: Endorses abdominal pain, nausea, vomiting, diarrhea. Denies bloody stools [] : Denies dysuria or hematuria [] Musculoskeletal: Endorses back pain [] Neurologic: Endorses headache. Denies focal weakness or sensory changes [] Complete systems were reviewed and found to be within normal limits, except as documented in this note. Current Medications Current Medications Current Medications Medications (Trade) Dose Ordered Sig/Radha Start Time Stop Time Status Last Admin Dose Admin Famotidine (Pepcid Vial) 20 mg 1X ONCE 01/24/18 18:30 01/24/18 18:31 DC 01/24/18 18:39 20 MG Hyoscyamine (Anaspaz) 0.25 mg 1X ONCE 01/24/18 18:30 01/24/18 18:31 DC 01/24/18 18:40 0.25 MG Info (CONTRAST GIVEN -- Rx MONITORING) 1 each PRN DAILY PRN 01/24/18 19:30 01/26/18 19:29 Iohexol (Omnipaque 300 Mg/ml) 75 ml 1X ONCE 01/24/18 19:30 01/24/18 19:31 DC 01/24/18 19:24 75 ML Ondansetron HCl (Zofran) 4 mg 1X ONCE 01/24/18 18:30 01/24/18 18:31 DC 01/24/18 18:39 4 MG Sodium Chloride 1,000 ml @ 1,000 mls/hr 1X ONCE 01/24/18 18:30 01/24/18 19:29 DC 01/24/18 18:39 1,000 MLS/HR Allergies Allergies Allergies Coded Allergies Type Severity Reaction Last Updated Verified No Known Drug Allergies 05/05/17 No Physical Exam Physical Exam Constitutional: Well developed, well nourished, no acute distress, non-toxic appearance. [] HENT: Normocephalic, atraumatic, bilateral external ears normal, oropharynx moist, no oral exudates, nose normal. [] Eyes: PERRL, EOMI [] Neck: Normal range of motion, no tenderness, supple, no stridor. [] Cardiovascular:Heart rate regular rhythm, no murmur [] Lungs & Thorax: Bilateral breath sounds clear to auscultation [] Abdomen: Bowel sounds normal, soft, no tenderness, no masses, no pulsatile masses. [] Skin: Warm, dry, no erythema, no rash. [] Back: Left upper back tenderness on palpation. No CVA tenderness. [] Extremities: No tenderness, no cyanosis, no clubbing, ROM intact, no edema. [] Neurologic: Alert and oriented X 3, normal motor function, normal sensory function, no focal deficits noted. [] Current Patient Data Vital Signs Vital Signs Date Time Temp Pulse Resp B/P (MAP) Pulse Ox O2 Delivery O2 Flow Rate FiO2 01/24/18 18:16 99.1 71 18 144/84 (104) 98 Room Air 99.1 Lab Values Laboratory Tests Test 01/24/18 18:10 01/24/18 18:25 Urine Collection Type Unknown Urine Color Yellow Urine Clarity Clear Urine pH 7.0 Urine Specific [place] <=1.005 Urine Protein Negative mg/dL (NEG-TRACE) Urine Glucose (UA) Negative mg/dL (NEG) Urine Ketones (Stick) Negative mg/dL (NEG) Urine Blood Negative (NEG) Urine Nitrite Negative (NEG) Urine Bilirubin Negative (NEG) Urine Urobilinogen Dipstick 0.2 mg/dL (0.2 mg/dL) Urine Leukocyte Esterase Negative (NEG) Urine RBC 0 /HPF (0-2) Urine WBC 0 /HPF (0-4) Urine Squamous Epithelial Cells Few /LPF Urine Bacteria 0 /HPF (0-FEW) White Blood Count 5.4 x10^3/uL (4.0-11.0) Red Blood Count 4.44 x10^6/uL (3.50-5.40) Hemoglobin 13.8 g/dL (12.0-15.5) Hematocrit 39.9 % (36.0-47.0) Mean Corpuscular Volume 90 fL (79-100) Mean Corpuscular Hemoglobin 31 pg (25-35) Mean Corpuscular Hemoglobin Concent 35 g/dL (31-37) Red Cell Distribution Width 13.8 % (11.5-14.5) Platelet Count 220 x10^3/uL (140-400) Neutrophils (%) (Auto) 44 % (31-73) Lymphocytes (%) (Auto) 36 % (24-48) Monocytes (%) (Auto) 17 % (0-9) H Eosinophils (%) (Auto) 3 % (0-3) Basophils (%) (Auto) 1 % (0-3) Neutrophils # (Auto) 2.4 x10^3uL (1.8-7.7) Lymphocytes # (Auto) 2.0 x10^3/uL (1.0-4.8) Monocytes # (Auto) 0.9 x10^3/uL (0.0-1.1) Eosinophils # (Auto) 0.2 x10^3/uL (0.0-0.7) Basophils # (Auto) 0.0 x10^3/uL (0.0-0.2) Prothrombin Time 11.7 SEC (11.7-14.0) Prothrombin Time INR 0.9 (0.8-1.1) PTT 28 SEC (24-38) Sodium Level 139 mmol/L (136-145) Potassium Level 4.5 mmol/L (3.5-5.1) Chloride Level 104 mmol/L (98-107) Carbon Dioxide Level 29 mmol/L (21-32) Anion Gap 6 (6-14) Blood Urea Nitrogen 18 mg/dL (7-20) Creatinine 0.9 mg/dL (0.6-1.0) Estimated GFR (Cockcroft-Gault) 77.8 BUN/Creatinine Ratio 20 (6-20) Glucose Level 114 mg/dL (70-99) H Calcium Level 9.5 mg/dL (8.5-10.1) Magnesium Level 2.0 mg/dL (1.8-2.4) Total Bilirubin 0.6 mg/dL (0.2-1.0) Aspartate Amino Transferase (AST) 13 U/L (15-37) L Alanine Aminotransferase (ALT) 19 U/L (14-59) Alkaline Phosphatase 73 U/L (46-116) Creatine Kinase 107 U/L (26-192) Creatine Kinase MB (Mass) 0.5 ng/mL (0.0-3.6) Creatine Kinase MB Relative Index 0.5 % (0-4) Troponin I Quantitative < 0.017 ng/mL (0.000-0.055) Total Protein 7.8 g/dL (6.4-8.2) Albumin 3.8 g/dL (3.4-5.0) Albumin/Globulin Ratio 1.0 (1.0-1.7) Lipase 156 U/L (73-393) Laboratory Tests 01/24/18 18:25 Laboratory Tests 01/24/18 18:25 EKG EKG NSR at 67bpm. NO ST elevation. 01/24/2018. 1850 Radiology/Procedures Radiology/Procedures PROCEDURE: CT ABD PELV W/ IV CONTRST ONLY PQRS Compliance statement: One or more of the following individualized dose reduction techniques were utilized for this examination: 1. Automated exposure control. 2. Adjustment of the mA and/or kV according to patient size. 3. Use of iterative reconstruction technique. Indication:upper abd pain, n/v/d x 1 day TECHNIQUE: CT abdomen and pelvis with IV contrast with multiplanar reformats. COMPARISON: None FINDINGS: Heart is normal in size. No pericardial or pleural effusion. Clear lung bases. Liver, spleen, gallbladder, pancreas, adrenals within normal limits. Too small to characterize low attenuating lesion is seen in segment 2 of the liver most likely a simple cyst or hemangioma. No nephrolithiasis or hydronephrosis. No free pelvic fluid or ascites. No retroperitoneal or pelvic adenopathy. Normal appendix. No bowel obstruction. No pneumoperitoneum. Urinary bladder within normal limits. Anteverted uterus. No suspicious bony lesion. IMPRESSION: No acute findings. Course & Med Decision Making Course & Med Decision Making Pertinent Labs and Imaging studies reviewed. (See chart for details) Patient is a 57-year-old female who presents to the emergency department complaining of abdominal pain. While in the ED supportive measures provided. Labs, EKG and CT imaging ordered. [] Dragon Disclaimer Dragon Disclaimer This electronic medical record was generated, in whole or in part, using a voice recognition dictation system. Departure Departure Impression: Primary Impression: Nausea, vomiting and diarrhea Disposition: HOME, SELF-CARE Condition: IMPROVED Referrals: UNKNOWN PCP NAME (PCP) Patient Instructions: Diarrhea, Qcry-hv-Ogbl, Nausea and Vomiting, Cash-vr-Scnw Scripts Famotidine (PEPCID) 20 Mg Tablet 20 MG PO BID, #14 TAB Prov: RANDY LUNA DO 01/24/18 Ondansetron (ZOFRAN ODT) 4 Mg Tab.rapdis 4 MG PO Q8HRS PRN for NAUSEA/VOMITING, #14 TAB Prov: RANDY LUNA DO 01/24/18 Hyoscyamine Sulfate (LEVSIN-SL) 0.125 Mg Tab.subl 0.125 MG SL Q4-6HRS PRN for PAIN, #20 TAB Prov: RANDY LUNA DO 01/24/18 RANDY LUNA DO Jan 24, 2018 18:46
[2018-01-24 18:48] LABS: PROTHROMBIN TIME PATIENT 11.7 SEC (11.7-14.0)
[2018-01-24 18:58] LABS: CALCIUM 9.5 mg/dL (8.5-10.1); CREATININE 0.9 mg/dL (0.6-1.0); GFR 77.8; POTASSIUM 4.5 mmol/L (3.5-5.1)
[2018-01-24 19:02] LABS: ALBUMIN 3.8 g/dL (3.4-5.0); TOTAL BILIRUBIN 0.6 mg/dL (0.2-1.0); TOTAL PROTEIN 7.8 g/dL (6.4-8.2)
[2018-01-24] MEDS ORDERED: IOHEXOL 300 MG/ML 100ML VIAL. IV ONE (19:30)
[2018-01-24] MEDS ORDERED: CONTRAST GIVEN. MC PRN (19:30)
--- NOTE | 2018-01-24 20:47 | RAD ---
PQRS Compliance statement: One or more of the following individualized dose reduction techniques were utilized for this examination: 1. Automated exposure control. 2. Adjustment of the mA and/or kV according to patient size. 3. Use of iterative reconstruction technique. Indication:upper abd pain, n/v/d x 1 day TECHNIQUE: CT abdomen and pelvis with IV contrast with multiplanar reformats. COMPARISON: None FINDINGS: Heart is normal in size. No pericardial or pleural effusion. Clear lung bases. Liver, spleen, gallbladder, pancreas, adrenals within normal limits. Too small to characterize low attenuating lesion is seen in segment 2 of the liver most likely a simple cyst or hemangioma. No nephrolithiasis or hydronephrosis. No free pelvic fluid or ascites. No retroperitoneal or pelvic adenopathy. Normal appendix. No bowel obstruction. No pneumoperitoneum. Urinary bladder within normal limits. Anteverted uterus. No suspicious bony lesion. IMPRESSION: No acute findings. Electronically signed by: Josse Pedro DO (01/24/2018 8:44 PM) [facility]
[2018-01-24 22:00] VITALS: BP 118/77
[2018-01-24] MEDS ORDERED: ONDA4TAB10 PO (22:11)
[2018-01-24] MEDS ORDERED: FAMO-63 PO (22:11)
[2018-01-24] MEDS ORDERED: HYOS0.1265 SL (22:11)
--- NOTE | 2018-01-25 07:54 | EKG ---
[facility] [address] [place] [id number] Test Date: 2018-01-24 Test Time: 18:48:26 Pat Name: LYN BANG Department: Room: Gender: F [place] Man: : 1960 Requested By: RANDY LUNA Order Number: [id number] Reading MD: Abdiel Napoles MD Measurements Intervals [place] Rate: 66 P: 55 MA: 154 QRS: 21 QRSD: 84 T: 26 QT: 402 QTc: 427 Interpretive Statements SINUS RHYTHM Electronically Signed On 01-25-2018 10:23:39 CDT by Abdiel Napoles MD
== END 2018-01-24 22:42 | disposition home or self-care (01) ==
LOC: ER 17:58
DX: R11.2 Nausea with vomiting, unspecified (principal); R19.7 Diarrhea, unspecified; R10.9 Unspecified abdominal pain; Z98.890 Other specified postprocedural states; Z86.73 Personal history of transient ischemic attack (TIA), and cerebral infarction without residual deficits
CPT/HCPCS: 36415; 74177; 80053; 81001; 82553; 83690; 83735; 84484; 85025; 85610; 85730; 93005; 96361; 96374; 96375; 99285; J2405; J7030; Q9967; S0028

== ENCOUNTER 2018-07-14 17:52 | Emergency (ER) | payer BC ==
[~2018-07-14] VITALS: Ht 165.1 cm; Wt 79.4 kg
[~2018-07-14 17:52] MED LIST changes: +FAMO-63 PO; +HYOS0.1265 SL; +ONDA4TAB10 PO
[2018-07-14 19:45] VITALS: BP 178/96
--- NOTE | 2018-07-14 20:16 | PHYS DOC ---
Past Medical History Past Medical History: CVA (FREDRICK KRISHNAMURTHY WINE MAKER) Past Surgical History: , Other Additional Past Surgical Histo: breast reduction (FREDRICK KRISHNAMURTHY WINE MAKER) Alcohol Use: None Drug Use: None (FREDRICK KRISHNAMURTHY VALENCIA) Adult General Chief Complaint Chief Complaint: OTHER COMPLAINTS HPI HPI Patient is a 58 year old female who presents with a feeling like something is stuck in her throat. She states she was eating almonds around 3 pm today and a little later developed the feeling. She has been coughing repeatedly to try to get out whatever is stuck. She is drinking water and handling her own secretion without problem. (FREDRICK KRISHNAMURTHY WINE MAKER) Review of Systems Review of Systems Constitutional: Denies fever or chills [] Eyes: Denies change in visual acuity, redness, or eye pain [] HENT: See HPI Respiratory: Denies cough or shortness of breath [] Cardiovascular: No additional information not addressed in HPI [] Neurologic: Denies headache, focal weakness or sensory changes [] Endocrine: Denies polyuria or polydipsia [] All other systems were reviewed and found to be within normal limits, except as documented in this note. (FREDRICK KRISHNAMURTHY WINE MAKER) Allergies Allergies Allergies Uncoded Allergies Type Severity Reaction Last Updated Verified OTC topical acne medicine Allergy Intermediate rash 07/14/18 (RANDY LUNA DO) Physical Exam Physical Exam Constitutional: Well developed, well nourished, no acute distress, non-toxic appearance. [] HENT: Normocephalic, atraumatic, bilateral external ears normal, oropharynx moist, no oral exudates or signs of foreign body, nose normal. [] Eyes: PERRLA, EOMI, conjunctiva normal, no discharge. [] Neck: Normal range of motion, no tenderness, supple, no stridor. [] Cardiovascular:Heart rate regular rhythm, no murmur [] Lungs & Thorax: Bilateral breath sounds clear to auscultation [] Abdomen: Bowel sounds normal, soft, no tenderness, no masses, no pulsatile masses. [] Skin: Warm, dry, no erythema, no rash. [] Back: No tenderness, no CVA tenderness. [] Extremities: No tenderness, no cyanosis, no clubbing, ROM intact, no edema. [] Neurologic: Alert and oriented X 3, normal motor function, normal sensory function, no focal deficits noted. [] Psychologic: Affect normal, judgement normal, mood normal. [] (FREDRICK KRISHNAMURTHY APRN) EKG EKG [] (FREDRICK KRISHNAMURTHY APRN) Radiology/Procedures Radiology/Procedures [][facility] [address] [place] [address] IMAGING REPORT Signed PATIENT: LYN BANG ACCOUNT: [id number] : 1960 LOCATION: ER AGE: 58 SEX: F EXAM STATUS: DEP ER ORD. PHYSICIAN: FREDRICK KRISHNAMURTHY APRN REASON: feeling of food caught in throat PROCEDURE: NECK SOFT TISSUE 2 views soft tissue neck. HISTORY: Feeling of food caught in throat AP and lateral views were taken of the neck. Epiglottis is normal. There is no retropharyngeal soft tissue swelling. A mass is not identified. There is degenerative change in the cervical spine with disc space narrowing at C4-5 and C5-6 with spurring. IMPRESSION: 1. No opaque foreign body noted. 2. No abnormal soft tissue swelling in the neck. 3. Degenerative spondylosis in the cervical spine. Electronically signed by: Rhett Agarwal MD (07/15/2018 12:09 AM) [facility] DICTATED and SIGNED BY: RHETT AGARWAL MD DATE: 07/15/18 0008 (FREDRICK KRISHNAMURTHY APRN) Course & Med Decision Making Course & Med Decision Making Pertinent Labs and Imaging studies reviewed. (See chart for details) []The patient did have a decrease in symptoms with reassurance. She has continued to drink water with no ill effects. (FREDRCIK KRISHNAMURTHY APRN) Dragon Disclaimer Dragon Disclaimer This electronic medical record was generated, in whole or in part, using a voice recognition dictation system. (FREDRICK KRISHNAMURTHY APRN) Departure Departure Impression: Primary Impression: Globus sensation Disposition: 01 HOME, SELF-CARE Condition: STABLE Additional Instructions: Follow-up with your primary care provider for recheck if still having symptoms tomorrow. Return to the emergency department if worsening. Attending Signature Attending Signature I have reviewed the PA/MANAGER PARK's note and plan of care. I was available for consultation as needed during the patient's visit in the emergency department. I agree with the clinical impression, plan, and disposition. (RANDY LUNA DO) FREDRICK KRISHNAMURTHY APRN Jul 14, 2018 20:16 RANDY LUNA DO October 24, 2018 05:22
--- NOTE | 2018-07-15 00:14 | RAD ---
2 views soft tissue neck. HISTORY: Feeling of food caught in throat AP and lateral views were taken of the neck. Epiglottis is normal. There is no retropharyngeal soft tissue swelling. A mass is not identified. There is degenerative change in the cervical spine with disc space narrowing at C4-5 and C5-6 with spurring. IMPRESSION: 1. No opaque foreign body noted. 2. No abnormal soft tissue swelling in the neck. 3. Degenerative spondylosis in the cervical spine. Electronically signed by: Rhett Agarwal MD (07/15/2018 12:09 AM) [facility]
== END 2018-07-14 20:15 | disposition home or self-care (01) ==
LOC: ER 17:52
DX: F45.8 Other somatoform disorders (principal); Z86.73 Personal history of transient ischemic attack (TIA), and cerebral infarction without residual deficits; Z98.890 Other specified postprocedural states; Z88.8 Allergy status to other drugs, medicaments and biological substances
CPT/HCPCS: 70360; 99283

== ENCOUNTER 2019-08-01 23:59 | Emergency (ER) | payer BC ==
[~2019-08-01] VITALS: Ht 167.6 cm; Wt 81.8 kg
[2019-08-02] MEDS ORDERED: IV NORMAL SALINE 1000ML BAG 1,000 ML IV ONE (00:30)
--- NOTE | 2019-08-02 00:35 | PHYS DOC ---
Past Medical History Past Medical History: CVA Past Surgical History: , Tubal ligation, Other Additional Past Surgical Histo: breast reduction Smoking Status: Current Every Day Smoker Alcohol Use: None Drug Use: None Adult General Chief Complaint Chief Complaint: NAUSEA/VOMITING/DIARRHA HPI HPI 59-year-old female presents to the emergency Department complaints of nausea, vomiting, abdominal pain. She describes body aches as well. Symptoms have been ongoing 3 days. Nothing makes her symptoms worse, nothing makes her symptoms better. She denies any diarrhea or fever. She states been using Pepto-Bismol however no improvement. Vomiting is primarily dry heaves. She denies any chest pain or shortness of breath. She does complain of a headache. Review of Systems Review of Systems Constitutional: Denies fever or chills [] HENT: Denies nasal congestion or sore throat [] Respiratory: Denies cough or shortness of breath [] Cardiovascular: No additional information not addressed in HPI [] GI: + abdominal pain, nausea, vomiting, no bloody stools or diarrhea [] : Denies dysuria or hematuria [] Musculoskeletal: Denies back pain or joint pain [] Integument: Denies rash or skin lesions [] Neurologic: Denies headache, focal weakness or sensory changes [] All other systems were reviewed and found to be within normal limits, except as documented in this note. Current Medications Current Medications Current Medications Medications (Trade) Dose Ordered Sig/Radha Start Time Stop Time Status Last Admin Dose Admin Info (CONTRAST GIVEN -- Rx MONITORING) 1 each PRN DAILY PRN 08/02/19 01:45 08/04/19 01:44 Cancel Iohexol (Omnipaque 300 Mg/ml) 75 ml 1X ONCE 08/02/19 01:45 08/02/19 01:46 DC Morphine Sulfate (Morphine Sulfate) 2 mg 1X ONCE 08/02/19 01:30 08/02/19 01:31 DC Ondansetron HCl (Zofran) 4 mg 1X ONCE 08/02/19 01:30 08/02/19 01:31 DC 08/02/19 01:47 4 MG Sodium Chloride 1,000 ml @ 1,000 mls/hr 1X ONCE 08/02/19 00:30 08/02/19 01:29 DC 08/02/19 01:00 1,000 MLS/HR Allergies Allergies Allergies Uncoded Allergies Type Severity Reaction Last Updated Verified OTC topical acne medicine Allergy Intermediate rash 07/14/18 Physical Exam Physical Exam Constitutional: Well developed, well nourished, no acute distress, non-toxic appearance. [] HENT: Normocephalic, atraumatic, bilateral external ears normal, oropharynx moist, no oral exudates, nose normal. [] Eyes: PERRLA, EOMI, conjunctiva normal, no discharge. [] Cardiovascular:Heart rate regular rhythm, no murmur [] Lungs & Thorax: Bilateral breath sounds clear to auscultation [] Abdomen: Bowel sounds normal, soft, mild generalized tenderness throughout, no masses, no pulsatile masses. [] Skin: Warm, dry, no erythema, no rash. [] Back: No tenderness, no CVA tenderness. [] Extremities: No tenderness, no edema. [] Neurologic: Alert and oriented X 3, no focal deficits noted. [] Psychologic: Affect normal, judgement normal, mood normal. [] Current Patient Data Vital Signs Vital Signs Date Time Temp Pulse Resp B/P (MAP) Pulse Ox O2 Delivery O2 Flow Rate FiO2 08/02/19 00:26 97.8 97 18 179/96 (123) 99 97.8 Lab Values Laboratory Tests Test 08/02/19 00:45 08/02/19 00:57 Influenza Type A Antigen Negative (NEGATIVE) Influenza Type B Antigen Negative (NEGATIVE) White Blood Count 6.1 x10^3/uL (4.0-11.0) Red Blood Count 4.70 x10^6/uL (3.50-5.40) Hemoglobin 14.0 g/dL (12.0-15.5) Hematocrit 41.4 % (36.0-47.0) Mean Corpuscular Volume 88 fL (79-100) Mean Corpuscular Hemoglobin 30 pg (25-35) Mean Corpuscular Hemoglobin Concent 34 g/dL (31-37) Red Cell Distribution Width 13.5 % (11.5-14.5) Platelet Count 220 x10^3/uL (140-400) Neutrophils (%) (Auto) 49 % (31-73) Lymphocytes (%) (Auto) 36 % (24-48) Monocytes (%) (Auto) 12 % (0-9) H Eosinophils (%) (Auto) 2 % (0-3) Basophils (%) (Auto) 1 % (0-3) Neutrophils # (Auto) 3.0 x10^3/uL (1.8-7.7) Lymphocytes # (Auto) 2.2 x10^3/uL (1.0-4.8) Monocytes # (Auto) 0.7 x10^3/uL (0.0-1.1) Eosinophils # (Auto) 0.1 x10^3/uL (0.0-0.7) Basophils # (Auto) 0.1 x10^3/uL (0.0-0.2) Sodium Level 140 mmol/L (136-145) Potassium Level 3.8 mmol/L (3.5-5.1) Chloride Level 104 mmol/L (98-107) Carbon Dioxide Level 24 mmol/L (21-32) Anion Gap 12 (6-14) Blood Urea Nitrogen 22 mg/dL (7-20) H Creatinine 0.7 mg/dL (0.6-1.0) Estimated GFR (Cockcroft-Gault) 103.3 BUN/Creatinine Ratio 31 (6-20) H Glucose Level 104 mg/dL (70-99) H Lactic Acid Level 0.7 mmol/L (0.4-2.0) Calcium Level 9.5 mg/dL (8.5-10.1) Total Bilirubin 0.6 mg/dL (0.2-1.0) Aspartate Amino Transferase (AST) 15 U/L (15-37) Alanine Aminotransferase (ALT) 25 U/L (14-59) Alkaline Phosphatase 61 U/L (46-116) Total Protein 8.1 g/dL (6.4-8.2) Albumin 4.2 g/dL (3.4-5.0) Albumin/Globulin Ratio 1.1 (1.0-1.7) Lipase 125 U/L (73-393) Laboratory Tests 08/02/19 00:57 Laboratory Tests 08/02/19 00:57 EKG EKG [] Radiology/Procedures Radiology/Procedures [facility] [address] [place] [address] IMAGING REPORT Signed PATIENT: LYN BANG ACCOUNT: [id number] : 1960 LOCATION: ER AGE: 59 SEX: F EXAM STATUS: REG ER ORD. PHYSICIAN: BHARGAV EWING MD REASON: abdominal pain PROCEDURE: CT ABDOMEN PELVIS WO CONTRAST CT abdomen pelvis without contrast dated 08/02/2019. No comparison available. Clinical data indication: Abdominal pain. TECHNIQUE: Contiguous axial imaging and pelvis performed without the administration of IV or oral contrast. One or more of the following individualized dose reduction techniques were utilized for this examination: 1. Automated exposure control 2. Adjustment of the mA and/or kV according to patient size 3. Use of iterative reconstruction technique. FINDINGS:: Limited images of the lung bases are clear. Heart size is upper limits of normal. No pleural or pericardial effusion. There is minimal patchy groundglass density in the right lower lobe and lingula, nonspecific. Solid abdominal viscera not well evaluated in the absence of contrast material. No apparent attenuation abnormality of the liver or spleen. Pancreas, adrenal glands, gallbladder and kidneys are unremarkable. No stone or hydronephrosis. Unopacified GI tract normal in caliber and contour. No focal bowel wall thickening. No inflammatory stranding in the mesentery. No ascites or lymphadenopathy. The appendix is normal in caliber. Abdominal aorta normal in caliber. Images of pelvis show nondistended urinary bladder. Suspected mild wall thickening. Uterus and adnexa are unremarkable. No free fluid or lymphadenopathy. Bone windows show no acute findings. Mild lower lumbar spondylosis. IMPRESSION: 1. No acute abnormality of abdomen or pelvis. Normal appendix. 2. Suspected mild wall thickening of the urinary bladder, nonspecific. Consider acute or chronic cystitis. Electronically signed by: Donovan Lopez MD (08/02/2019 2:20 AM) [id number] DICTATED and SIGNED BY: DONOVAN LOPEZ MD DATE: 08/02/19 0220 [] Course & Med Decision Making Course & Med Decision Making Pertinent Labs and Imaging studies reviewed. (See chart for details) []59-year-old female presents to the emergency Department complaints of nausea, vomiting, abdominal pain. She describes body aches as well. Symptoms have been ongoing 3 days. Nothing makes her symptoms worse, nothing makes her symptoms better. She denies any diarrhea or fever. She states been using Pepto-Bismol however no improvement. Vomiting is primarily dry heaves. She denies any chest pain or shortness of breath. She does complain of a headache. Labs/Imaging reviewed CT without acute process identified - thickening of bladder wall Patient with increased frequency of urination Given symptoms will treat for UTI Abx provided, antinausea medications provided upon discharge Dragon Disclaimer Dragon Disclaimer This electronic medical record was generated, in whole or in part, using a voice recognition dictation system. Departure Departure Impression: Primary Impression: UTI (urinary tract infection) Additional Impression: Nausea Disposition: HOME, SELF-CARE Condition: IMPROVED Referrals: JANUARY ALVAREZ MD (PCP) Patient Instructions: Nausea, Adult, Urinary Tract Infection, [id number] Additional Instructions: Recommend abx as prescribed Zofran as needed for nausea CT without acute findings in the abdomen - evidence of thickened bladder Follow up with PCP in 3 days Tylenol/Motrin as needed for pain Return to ER with compalints Scripts Cephalexin (KEFLEX) 500 Mg Capsule 2 CAP PO Q12HR for 3 Days, #12 CAP Prov: BHARGAV EWING MD 08/02/19 Ondansetron Hcl (ZOFRAN) 4 Mg Tablet 1 TAB PO PRN Q6-8HRS for nausea, #12 TAB Prov: BHARGAV EWING MD 08/02/19 Problem Qualifiers Primary Impression: UTI (urinary tract infection) Urinary tract infection type: site unspecified Hematuria presence: without hematuria Qualified Codes: N39.0 - Urinary tract infection, site not specified BHARGAV EWING MD Aug 02, 2019 00:35
[2019-08-02 01:09] LABS: BASO # 0.1 x10^3/uL (0.0-0.2); BASO % 1 % (0-3); EOS # 0.1 x10^3/uL (0.0-0.7); EOS % 2 % (0-3); HEMATOCRIT 41.4 % (36.0-47.0); LYMPH # 2.2 x10^3/uL (1.0-4.8); LYMPH % 36 % (24-48); MEAN CORPUSCULAR HEMOGLOBIN 30 pg (25-35); MEAN CORPUSCULAR HGB CONC 34 g/dL (31-37); MEAN CORPUSCULAR VOLUME 88 fL (79-100); MONO # 0.7 x10^3/uL (0.0-1.1); MONO % 12 % (0-9); NEUT % 49 % (31-73); PLATELET COUNT 220 x10^3/uL (140-400); RED CELL DISTRIBUTION WIDTH 13.5 % (11.5-14.5); WHITE BLOOD COUNT 6.1 x10^3/uL (4.0-11.0)
[2019-08-02 01:16] LABS: CALCIUM 9.5 mg/dL (8.5-10.1); CREATININE 0.7 mg/dL (0.6-1.0); GFR 103.3; POTASSIUM 3.8 mmol/L (3.5-5.1)
[2019-08-02 01:25] LABS: INFLUENZA A PATIENT NEGATIVE (NEGATIVE); INFLUENZA B PATIENT NEGATIVE (NEGATIVE)
[2019-08-02] MEDS ORDERED: ONDANSETRON PF 4 MG/2 ML VIAL. IVP ONE (01:30)
[2019-08-02] MEDS ORDERED: MORPHINE SULFATE 2 MG/ML VIAL. IV ONE (01:30)
[2019-08-02 01:31] LABS: ALBUMIN 4.2 g/dL (3.4-5.0); ALBUMIN/GLOBULIN RATIO 1.1 (1.0-1.7); TOTAL BILIRUBIN 0.6 mg/dL (0.2-1.0); TOTAL PROTEIN 8.1 g/dL (6.4-8.2)
[2019-08-02] MEDS ORDERED: CONTRAST GIVEN. MC PRN (01:45)
[2019-08-02] MEDS ORDERED: IOHEXOL 300 MG/ML 100ML VIAL. IV ONE (01:45)
--- NOTE | 2019-08-02 02:23 | RAD ---
CT abdomen pelvis without contrast dated 08/02/2019. No comparison available. Clinical data indication: Abdominal pain. TECHNIQUE: Contiguous axial imaging and pelvis performed without the administration of IV or oral contrast. One or more of the following individualized dose reduction techniques were utilized for this examination: 1. Automated exposure control 2. Adjustment of the mA and/or kV according to patient size 3. Use of iterative reconstruction technique. FINDINGS:: Limited images of the lung bases are clear. Heart size is upper limits of normal. No pleural or pericardial effusion. There is minimal patchy groundglass density in the right lower lobe and lingula, nonspecific. Solid abdominal viscera not well evaluated in the absence of contrast material. No apparent attenuation abnormality of the liver or spleen. Pancreas, adrenal glands, gallbladder and kidneys are unremarkable. No stone or hydronephrosis. Unopacified GI tract normal in caliber and contour. No focal bowel wall thickening. No inflammatory stranding in the mesentery. No ascites or lymphadenopathy. The appendix is normal in caliber. Abdominal aorta normal in caliber. Images of pelvis show nondistended urinary bladder. Suspected mild wall thickening. Uterus and adnexa are unremarkable. No free fluid or lymphadenopathy. Bone windows show no acute findings. Mild lower lumbar spondylosis. IMPRESSION: 1. No acute abnormality of abdomen or pelvis. Normal appendix. 2. Suspected mild wall thickening of the urinary bladder, nonspecific. Consider acute or chronic cystitis. Electronically signed by: Donovan Lopez MD (08/02/2019 2:20 AM) [id number]
[2019-08-02] MEDS ORDERED: CEPH-264 PO (02:49)
[2019-08-02] MEDS ORDERED: ONDA4TAB7 PO (02:49)
[2019-08-02 03:11] VITALS: BP 144/78
== END 2019-08-02 03:11 | disposition home or self-care (01) ==
LOC: ER 23:59
DX: N39.0 Urinary tract infection, site not specified (principal); R11.2 Nausea with vomiting, unspecified; R10.84 Generalized abdominal pain; R51 Headache; I97.821 Postprocedural cerebrovascular infarction following other surgery; F17.200 Nicotine dependence, unspecified, uncomplicated; Z98.51 Tubal ligation status; Z98.890 Other specified postprocedural states
CPT/HCPCS: 36415; 74176; 80053; 83605; 83690; 85025; 87804; 96361; 96374; 99285; J2405; J7030